=== PATIENT | female | born 1995 | race Native Hawaiian/Other Pacific Islander ===

== ENCOUNTER 2018-10-12 20:47 | Emergency (ER) | payer SELFPAY ==
--- NOTE | 2018-10-12 21:08 | ED Physician Documentation ---
Abdominal Pain - HISTORIAN Historian: patient - HPI Stated Complaint: "I have had LLQ pain for about a week now" Chief Complaint: Abdominal Pain (one week ) Onset: days ago (7) Duration: waxing, waning Timing: better Context: denies: out of country travel, bad food, recent trauma Severity: moderate Quality: pain, cramping Associated Symptoms: nausea (today some nausea ). denies: fever Exacerbated by: other (walking or sitting ) Relieved by: other (sitting ) Further Comments: yes (she states a week ago she started to have LLQ pain and she states it comes and goes but she states yesterday it was the worst it has been and she did take ibuprofen and it did help. She currently has no pain. She does have some urinary urgency. No fever. She was due to start period two days ago. No diarrhea. Nausea the one time with pain yesterday.) - ROS CONST: no problems MS/SKIN/LYMPH: none NEURO/PSYCH: none - SOCIAL HX Smoking History: non-smoker Alcohol Use: none Drug Use: none - FAMILY HX Family History: none - PAST HX Past History: none Ischemic Bowel Risk Factors: none Other History: none Surgeries/Procedures: none Home Medications: Ambulatory Orders Medication Instructions Recorded NK 10/12/18 Allergies/Adverse Reactions: Allergies Allergy/AdvReac Type Severity Reaction Status Date / Time No Known Allergies Allergy Verified 10/12/18 21:26 - VITAL SIGNS Vital Signs: Vital Signs Temp Pulse Resp BP Pulse Ox 98.6 F 74 16 126/73 98 10/12/18 22:33 10/12/18 22:33 10/12/18 22:33 10/12/18 22:33 10/12/18 22:33 - REVIEWED ASSESSMENTS Nursing Assessment Reviewed: Yes Vitals Reviewed: Yes ED Results Lab/Radiology - Lab Results Lab Results: Lab Results 10/12/18 10/12/18 10/12/18 21:50 21:50 21:30 WBC 11.70 K/ul K/ul (4.00-12.00) RBC 4.56 M/ul M/ul (3.90-5.20) Hgb 13.5 g/dL g/dL (12.0-16.0) Hct 40.4 % % (34.5-46.5) MCV 89.0 fl fl (80.0-100.0) MCH 29.7 pg pg (28.0-34.0) MCHC 33.5 g/dL g/dL (30.0-36.0) RDW 13.2 % % (11.3-14.3) Plt Count 272 K/mm3 K/mm3 (130-400) Neut % (Auto) 55.6 % % (39.0-79.0) Lymph % (Auto) 36.6 % % (16.0-50.0) [place] % (Auto) 5.6 % % (0.0-11.0) Eos % (Auto) 1.2 % % (0.0-6.8) Baso % (Auto) 0.8 (0.0-1.5) Neut # (Auto) 6.5 # k/uL # k/uL (1.4-7.7) Lymph # (Auto) 4.3 # k/uL H # k/uL (0.6-4.0) [place] # (Auto) 0.7 # k/uL # k/uL (0.0-0.9) Eos # (Auto) 0.1 # k/uL # k/uL (0.0-0.6) Baso # (Auto) 0.1 # k/uL # k/uL (0.0-0.5) Sodium 140 mmol/L mmol/L (136-145) Potassium 3.9 mmol/L mmol/L (3.5-5.1) Chloride 103 mmol/L mmol/L (98-107) Carbon Dioxide 25 mmol/L mmol/L (22-30) BUN 13 mg/dL mg/dL (7-17) Creatinine 0.63 mg/dL mg/dL (0.52-1.04) Estimated Creat Clear 194 Est GFR ( Amer) > 60 (60 - ) Est GFR (Non-Af Amer) > 60 (60 - ) Glucose 93 mg/dL mg/dL (74-106) Calcium 9.4 mg/dL mg/dL (8.4-10.2) Total Bilirubin 0.3 mg/dL mg/dL (0.2-1.3) AST 23 U/L U/L (15-46) ALT 18 U/L U/L (13-69) Alkaline Phosphatase 76 U/L U/L (38-126) Total Protein 7.6 g/dL g/dL (6.3-8.2) Albumin 4.0 g/dL g/dL (3.5-5.0) Urine Color Yellow (YELLOW) Urine Appearance Clear (CLEAR) Urine pH 6.0 (5.0 - 8.0) Ur Specific [place] 1.025 (1.010-1.030) Urine Protein Negative mg/dL mg/dL (NEGATIVE) Urine Ketones Negative mg/dL mg/dL (NEGATIVE) Urine Occult Blood Negative (NEGATIVE) Urine Nitrite Negative (NEGATIVE) Urine Bilirubin Negative (NEGATIVE) Urine Urobilinogen 0.2 Eu Eu (0.2-1.0) Ur Leukocyte Esterase 2+ H (NEGATIVE) Urine Glucose Negative mg/dL mg/dL (NEGATIVE) Urine HCG, Qual Negative (NEGATIVE) - Orders Orders: ED Orders Category Date Time Status IV Started NOW Care 10/12/18 21:47 Active CBC/PLATELET/DIFF Stat Lab 10/12/18 21:50 Completed CMP Stat Lab 10/12/18 21:50 Completed UA MACRO DIP ONLY Routine Lab 10/12/18 21:30 Completed URINE CULTURE Routine Lab 10/12/18 21:30 Completed URINE HCG Routine Lab 10/12/18 21:30 Completed 0.9 % Sodium Chloride [Normal Saline] 1,000 ml Med 10/12/18 21:47 Discontinued IV NOW Sulfamethoxazole/Trimethoprim [Bactrim Ds] Med 10/12/18 22:30 Discontinued 1 each PO NOW ONE Abdominal Pain Physical Exam - Physical Exam General Appearance: no acute distress, alert EENT: eye inspection normal, no signs of dehydration NECK: normal inspection RESPIRATORY: no resp distress, chest non-tender, breath sounds normal CVS: reg rate & rhythm, heart sounds normal ABDOMEN: soft, normal bowel sounds, no distension, non-tender BACK: normal inspection, no CVA tenderness SKIN: warm/dry, normal color EXTREMITIES: non-tender, normal range of motion, no evidence of injury, no edema NEURO: oriented X3 Vital Signs: Vital Signs Temp Pulse Resp BP Pulse Ox 98.6 F 74 16 126/73 98 10/12/18 22:33 10/12/18 22:33 10/12/18 22:33 10/12/18 22:33 10/12/18 22:33 Discharge Clincal Impression: UTI (urinary tract infection) Qualifiers: Urinary tract infection type: site unspecified Hematuria presence: without hematuria Qualified Code(s): N39.0 - Urinary tract infection, site not specified Comments: 1. Bactrim DS take 1 by mouth twice daily 2. Ibuprofen or Tylenol as directed for pain 3. See PCP in 2-4 days 4. Return to ER for any concerns 5. Increase fluids Condition: Stable Disposition: 01 HOME, SELF-CARE Decision to Admit: NO Date of Decison to Admit: 10/12/18 Decision Time: 23:30
[2018-10-12 21:56] LABS: APPEARANCE,URINE CLEAR (CLEAR); COLOR,URINE YELLOW (YELLOW)
[2018-10-12 21:57] LABS: OCCULT BLOOD,URINE NEGATIVE (NEGATIVE); URINE HCG NEGATIVE (NEGATIVE); UROBILINOGEN URINE 0.2 Eu (0.2-1.0)
[2018-10-12] MEDS: 0.9 % SODIUM CHLORIDE 1,000 ML IV ONE (21:58)
[2018-10-12 22:19] LABS: BASOPHILS % 0.8 (0.0-1.5); EOSINOPHILS % 1.2 % (0.0-6.8); MEAN CORPUSCULAR HEMOGLOBIN 29.7 pg (28.0-34.0); MONOCYTES % 5.6 % (0.0-11.0); NEUTROPHILS # 6.5 # k/uL (1.4-7.7)
[2018-10-12 22:20] LABS: eGFR (Non-African) > 60
[2018-10-12 22:42] VITALS: BP 126/73
[2018-10-12] MEDS: SULFAMETHOXAZOLE/TRIMETHOPRIM 800/160MG TAB PO ONE (22:45)
== END 2018-10-12 22:40 | disposition home or self-care (01) ==
LOC: ED 20:47
DX: N39.0 Urinary tract infection, site not specified (principal)
CPT/HCPCS: 36415; 80053; 81002; 81025; 85025; 87086; 99283; A9270; J7030; S1016